=== PATIENT | female | born 1995 | race Caucasian/White ===

== ENCOUNTER 2017-03-13 16:25 | Inpatient (IN) | payer BC, OTHER ==
[~2017-03-13] VITALS: Ht 160 cm; Wt 49.0 kg
[~2017-03-13 16:25] MED LIST: ARIP5TAB4 PO; ASPI1TAB PO; FLUO-120 PO; LAMO150T PO
[2017-03-13] MEDS ORDERED: FLUO-120 PO (17:23)
[2017-03-13] MEDS ORDERED: ACETAMINOPHEN 325 MG TABLET PO PRN (17:45)
[2017-03-13] MEDS ORDERED: ONDANSETRON 4 MG/2 ML VIAL IM PRN (17:45)
[2017-03-13] MEDS ORDERED: IBUPROFEN 600 MG TABLET PO PRN (17:45)
[2017-03-13] MEDS ORDERED: LOPERAMIDE HCL 2 MG CAPSULE PO PRN ×2 (17:45)
[2017-03-13] MEDS ORDERED: MAGNESIUM HYDROXIDE 30 ML LIQUID UDC PO PRN (17:45)
[2017-03-13] MEDS ORDERED: CLONIDINE HCL 0.1 MG TABLET PO PRN (17:45)
[2017-03-13] MEDS ORDERED: MAG HYDROX/AL HYDROX/SIMETH 30 ML LIQUID UDC PO PRN (17:45)
[2017-03-13] MEDS ORDERED: LORAZEPAM 1 MG TABLET PO PRN ×2 (17:45)
[2017-03-13] MEDS ORDERED: DICYCLOMINE HCL 20 MG TABLET PO PRN (17:45)
[2017-03-13] MEDS ORDERED: LORAZEPAM 2 MG/1 ML VIAL IM PRN (17:45)
[2017-03-13] MEDS ORDERED: METHOCARBAMOL 750 MG TABLET PO PRN (17:45)
[2017-03-13] MEDS ORDERED: BUPRENORPHINE HCL 2 MG TAB.SUBL SL PRN (17:45)
[2017-03-13] MEDS ORDERED: ONDANSETRON ODT 4 MG TAB.RAPDIS SL PRN (17:45)
[2017-03-13] MEDS ORDERED: diphenhydrAMINE 50 MG CAPSULE PO PRN (17:45)
[2017-03-13] MEDS ORDERED: ASPIRIN/ACETAMINOPHEN/CAFFEINE TABLET PO PRN (17:45)
[2017-03-13] MEDS ORDERED: HYDROXYZINE PAMOATE 25 MG CAPSULE PO PRN (17:45)
[2017-03-13] MEDS ORDERED: MIRALAX 17 GM POWD.PACK PO PRN (17:45)
--- NOTE | 2017-03-13 18:01 | NUR ---
PRE ASSESSMENT: SKIN WARM AND DRY. NO EDEMA NOTED. BURN DEL TORO TO R THIGH THAT ARE NOT OPEN. SHE IS INTOXICATED WITH CHOREIFORM MOVEMENTS AND SLURRED SPEECH. VS WNL. SHE STATES SHE SMOKES METH,DRINKS ETOH AND EATS XANAX. SHE COULD NOT GIVE ME AMOUNTS AND IS TOO INTOXICATED TO BE ASSESSED AT THIS TIME. SHE IS ON A 1:1 FOR SAFETY. SHE IS NOT ABLE TO VOID AT THIS TIME. SHE IS ON ROOM RESTRICTION. SHE STATES SHE HAS BEEN AWAKE FOR MANY DAYS BUT COULD NOT SPECIFY. WILL ENDORSE TO [employer].
[2017-03-13 18:09] VITALS: BP 109/68
[2017-03-13 20:00] VITALS: BP 94/54
--- NOTE | 2017-03-13 20:00 | NUR ---
ADMISSION NOTE Pt is 21 year old female, admitted to [facility] 3rd floor on 03/13/17. Skin and body check done by day shift nurse, as per report, no contraband found. Pt in room 305, pt is intoxicated as evidenced by slurred speech, random frequent body movements, prolonged response to questions. Pt is difficult to obtain information from, responses inconsistent and vague. Pt oriented to name, place, date, situation. Pt was unable t provide urine, is on 1:1 and room restriction. Pt reports allergy to Wellbutrin, allergic reaction s/s seizures/ convulsion, last reaction "couple of years ago". Pt denies having PCP, states she goes to urgent care if needs medical care. Pt was in ER 2 days ago for withdrawal-related seizures, pt unable to provide name/ place of hospital. Pt reports PMH of bipolar disorder. Pt states she takes the following medications at home: 1. Prozac 20 mg - 1 cap daily, last taken 03/13/17 2. Abilify, unknown dose - pt run out of prescription, was not taking medication for "weeks" Pt reports history of withdrawal seizures, last episode on 03/11/17, pt was in ER for medical care. Substance use hx: Per pt, she relapsed 3 months ago (Nov, 2016), was on/off heroin and methamphetamine, but still was attending IOP, pt relapsed 2 weeks ago, provided the following information on drug use: 1. Xanax - pt started to take non-prescribed Xanax at age 14, for last 2 weeks, she reported use 2-4 mg daily PO, last dose taken 03/13/17 in the amount of 2 mg 2. ETOH (whiskey) - pt started to consume etoh at age 14, for past 2 weeks pt reports drinking daily, 6-8 "drinks", last drink 03/12/17, 6 "servings" of whiskey 3. Roxicet - pt started to use roxicet at age 15, takes it "whenever available", states "I wish I had it daily", usually takes it 3-4 times a week, 30-60 mg by snorting, last taken 03/13/17, 30 mg snorting 4. Heroin - pt started to use heroin at age 21, for past 2 wks, pt reports using 1 g q3days, last taken 03/12/17, unknown dose by smoking 5. Methamphetamine - pt started to use meth at age 21, for past weeks, she reports using "100$ worth" daily, IV or smoking, last taken 03/13/17 of unknown dose 6. Cocaine - she reports started to use cocaine at age 14, on/off, last use "couple of days ago", unknown dose. Pt reports her longest period of sobriety was 1 year from Jun 2015 - Jun 2016. Pt denies attending AA/NA groups. Rehab/detox hx: 1. [facility], [place] - Jan, 2017 for 3 weeks, then relapsed 2. [facility], [place] - Jul, 2017 for 5-6 wks 3. [facility], [place]- Aug 13-2015 Pt reports smoking tobacco since 14 years old, approximately 1 pack per day. Provided with smoking cessation information, reinforcement needed. Pt appears hyperactive, denies anxiety, pt noted with difficulty to stay in one position, constantly moving arms/ legs. No tremors noted. Skin warm, dry. Denies n/v, headache, hallucinations. Denies SI/HI. COWS 7, CIWA 2. All extremities with full ROM. Pupils 1 mm bilat, PERRLA. RR unlabored lung sounds clear bilat. Heart rate regular, no murmurs, pt denies chest pain at this time. Cap refill < 3 sec. No edema noted. Bowel sounds active x 4, pt no n/v. VS; temp 97.6, HR 86, RR 18, SPO2 97, BP 94/54, pain 0/10. Wt 108 lb, Ht 5'3". Pt oriented to room and environment, with returned demonstration windows application administrator light use. Pt encourage to increase PO fluids. Side rails up x2, call light within reach, bed locked in lower position. MD Castillo notified.
[2017-03-13] MEDS ORDERED: THIAMINE HCL 200 MG/2 ML VIAL IM ONE (21:00)
--- NOTE | 2017-03-13 21:45 | NUR ---
THIAMINE INJ REFUSED Pt refused B1 injection IM, states "no needles please". Risks/ benefits explained, pt offered x 3, but still refused.
[2017-03-14] VITALS: BP 99/77
--- NOTE | 2017-03-14 | NUR ---
CIWA/COWS DEFERRED COWS/CIWA assessment deferred per MD order; pt sleeping soundly, fall precautions in place, will continue to monitor Addendum: 03/14/17 at 0436 by HELIO AGUILAR RN Amended: Links added.
[2017-03-14 03:50] LABS: ETHANOL < 3 MG/DL (0-0)
[2017-03-14 03:56] LABS: ALANINE AMINOTRANSFERASE 24 U/L (14-59); ALBUMIN 2.9 g/dL (3.4-5.0); ALKALINE PHOSPHATASE 41 U/L (50-136); AMYLASE 35 U/L (25-115); ASPARTATE AMINOTRANSFERASE 25 U/L (15-37); BILIRUBIN,TOTAL 0.4 mg/dL (0.2-1.0); CALCIUM 8.5 mg/dL (8.5-10.1); CARBON DIOXIDE 27 mmol/L (21-32); CHLORIDE 105 mmol/L (98-107); CREATININE 0.8 mg/dL (0.6-1.3); GFR 89 mL/min (>60); GLUCOSE 83 mg/dL (74-106); LIPASE 89 U/L (73-393); MAGNESIUM 1.9 mg/dL (1.8-2.4); POTASSIUM 4.1 mmol/L (3.5-5.1); SODIUM SERUM 140 mmol/L (136-145); TOTAL PROTEIN, SERUM 6.3 g/dL (6.4-8.2); UREA NITROGEN, BLOOD 12 mg/dL (7-18)
[2017-03-14 04:00] VITALS: BP 110/85
--- NOTE | 2017-03-14 04:00 | NUR ---
CIWA/COWS DEFERRED COWS/CIWA assessment deferred per MD order; pt sleeping soundly, fall precautions in place, will continue to monitor
[2017-03-14 04:07] LABS: HIV-1 p24 ANTIGEN NON REACTIVE (NONREACTIVE); HIV-1/2 ANTIBODY NON REACTIVE (NONREACTIVE)
[2017-03-14 04:28] LABS: BASOPHILS # (AUTO) 0.1 K/uL (0.0-8.0); BASOPHILS % (AUTO) 1.7 % (0.0-2.0); EOSINOPHILS # (AUTO) 0.5 K/uL (0.0-0.7); EOSINOPHILS % (AUTO) 6.4 % (0.0-7.0); HEMATOCRIT 35.5 % (31.2-41.9); HEMOGLOBIN 12.3 g/dL (10.9-14.3); LYMPHOCYTES # (AUTO) 3.8 K/uL (20.0-40.0); LYMPHOCYTES % (AUTO) 49.3 % (20.5-51.5); MEAN CORPUSCULAR HEMOGLOBIN 33.5 uug (24.7-32.8); MEAN CORPUSCULAR HGB CONC 35 g/dL (32.3-35.6); MEAN CORPUSCULAR VOLUME 96.6 fL (75.5-95.3); MONOCYTES # (AUTO) 0.9 K/uL (2.0-10.0); MONOCYTES % (AUTO) 12.5 % (0.0-11.0); NEUTROPHILS # (AUTO) 2.2 K/uL (1.8-8.9); NEUTROPHILS % (AUTO) 30.1 % (38.5-71.5); PLATELET COUNT (AUTO) 340 K/uL (179-408); RED BLOOD CELL COUNT(AUTO) 3.67 MIL/uL (3.63-4.92); RED CELL DISTRIBUTION WIDTH 12.6 % (12.3-17.7); WHITE BLOOD COUNT (AUTO) 7.5 K/uL (3.8-11.8)
--- NOTE | 2017-03-14 07:18 | NUR ---
END OF FIT NOTE Pt is 21 y o female, allergic to wellbutrin, admitted on 03/13/16 for etoh, xanax, roxicet, heroin, methamphetamine, cocaine dependence. Pt is to start 5 day Ativan taper on 03/14/17. Pt was intoxicated upon admission, history provided by pt was difficult to obtain and inconsistent. Pt on 1:1 for safety. Pt refused B1 injection d/r fear of needles. Pt was unable to provided urine for UDS at 0650, was sent to lab promptly. Pt was restless but drowsy throughout the shift, COWS 7, CIWA 2 at 2000. VSS. Pt did not receive any prns. Pt slept for 7 hrs. PMH of bipolar and seizures. Pt is n seizure and fall precautions. Report endorsed to day shift nurse.
--- NOTE | 2017-03-14 07:20 | NUR ---
Start of shift note Pt was admitted for ETOH, Benzo, opiate and methamphetamine dependence. Pt has a PMH of bipolar disorder and seizures, with the last one on 03/11/17. Pt is on a 1:1 for safety. Pt is resting in her room. Pt has no complaints at this time. Pt continues to have continuos body movements. All needs addressed at this time. Will continue to monitor pt. pt is scheduled to start a 5 day ativan taper at 0900 and has PRN subutex available for COWS >12.
[2017-03-14 07:23] LABS: *BLOOD, URINE NEGATIVE (NEGATIVE); *COLOR,URINE DARK YELLOW (YELLOW); *KETONES,URINE NEGATIVE (NEGATIVE); *PROTEIN,URINE 1+ (NEGATIVE); *UROBILINOGEN,URINE 0.2 E.U./dl (NORMAL); LEUKOCYTE ESTERASE ,URINE NEGATIVE (NEGATIVE); NITRITE, URINE NEGATIVE (NEGATIVE); PH,URINE 5.5 (5.0-8.0); UGLUCOSE NEGATIVE (NEGATIVE)
[2017-03-14 07:29] LABS: *URINE HCG, QUAL NEG (NEGATIVE)
[2017-03-14 07:44] LABS: *BILIRUBIN,URIN 1+ (NEGATIVE); *CLARITY,URINE HAZY (CLEAR)
[2017-03-14 07:46] LABS: *AMPHETAMINE, URINE POSITIVE (NEGATIVE); *BARBITURATE, URINE NEGATIVE (NEGATIVE); *CANNABINOID, URINE NEGATIVE (NEGATIVE); *COCCAINE, URINE POSITIVE (NEGATIVE); *OPIATE, URINE POSITIVE (NEGATIVE); *PHENCYCLIDINE SCREEN,URINE NEGATIVE (NEGATIVE)
[2017-03-14 07:49] LABS: BACTERIA,URINE FEW /HPF (NONE SEEN); ICTOTEST NEGATIVE (NEGATIVE); MUCUS,URINE MANY /LPF (0-FEW); RBC,URINE 0-3 /HPF (0-3); SQUAMOUS EPITHELIAL CELL,UR MODERATE /HPF (NONE SEEN)
[2017-03-14 08:00] VITALS: BP 109/63
[2017-03-14] MEDS: LORAZEPAM 1 MG TABLET PO SCH ×4 (08:28→21:45)
[2017-03-14] MEDS: FOLIC ACID 1 MG TABLET PO SCH (08:28)
[2017-03-14] MEDS: THIAMINE HCL 100 MG TABLET PO SCH (08:28)
[2017-03-14] MEDS: MULTIVITAMINS,THERAPEUTIC TABLET PO SCH (08:28)
--- NOTE | 2017-03-14 08:28 | NUR ---
PRN administration Pt c/o pain 8/10 in her bilateral upper arms. Administered PRN robaxin and motrin. Will continue to monitor pt
[2017-03-14] MEDS ORDERED: TUBERCULIN,PURIF.PROT.DERIV. 5 TU/0.1 ML TEST ID ONE (09:00)
[2017-03-14] MEDS: ARIPIPRAZOLE 5 MG TABLET PO SCH (09:00)
[2017-03-14] MEDS: FLUOXETINE HCL 20 MG CAPSULE PO SCH (09:00)
--- NOTE | 2017-03-14 09:28 | NUR ---
Reassessment/medication held Pt is sleeping soundly. Pt is too sedated to take medication, abilify and prosac held. Will continue to monitor pt. 1:1 sitter at bedside.
--- NOTE | 2017-03-14 11:05 | NUR ---
TRANSFER OF CARE Received pt sleeping in bed with side rails padded and sitter at bedside. bed locked and in lowest position. Will continue to monitor.
[2017-03-14 12:00] VITALS: BP 94/56
--- NOTE | 2017-03-14 12:00 | NUR ---
1200 COWS/CIWA DEFERRED Pt asleep. RR even and unlabored at 16. Bed in lowest position and locked with side rails padded. Sitter at bedside. Will monitor
--- NOTE | 2017-03-14 13:00 | NUR ---
1300 Ativan held. Patient too sedated in bed. RR even and unlabored. Bed locked and in lowest position with side railed padded. Sitter at bedside.
[2017-03-14 16:00] VITALS: BP 126/82
--- NOTE | 2017-03-14 16:00 | NUR ---
1600 COWS/CIWA DEFERRED. PT STILL ASLEEP. VSS. RESPIRATIONS EVEN AND UNLABORED AT 16. SITTER AT BEDSIDE
[2017-03-14] MEDS ORDERED: IV D5 1/2 NS 1000 ML 1,000 ML IV PRN (17:00)
--- NOTE | 2017-03-14 18:40 | NUR ---
END OF SHIFT: Pt slept most of shift. CIWA and COWS deferred. Pt on 1:1 and sitter at bedside all shift. Bed locked and in lowest position with side rails padded. Pt on fall and seizure precautions. PRN Robaxin and Motrin given by prior nurse with effectiveness. Pt woke up at 1800 and began eating dinner. 2 mg Ativan administered per taper at 1750. Will pass report to oncoming nurse.
--- NOTE | 2017-03-14 19:30 | NUR ---
START OF SHIFT NOTE Received Pt is 21 y o female, admitted on 03/13/17 for Xanax, ETOH, Roxicet, heroin, methamphetamine and cocaine dependence. Pt started 5 day Ativan taper on 03/14/17. Pt in bed, resting with eyes closed. Pt awakened by verbal stimuli, oriented x 3. Pt reports mild anxiety when awake, noted moderate sweating. No tremors noted. Pupils 2 mm bilat, PERRLA. RR unlabored, lung sounds clear. Bowel sounds active x 4, pt denies n/v/stomach cramps. Pt denies urinary difficulties. Pt is on 1:1 for fall and seizure precautions. Side rails up x 2, call light within reach, bed locked in lowest position. Will continue with plan of care
[2017-03-14 20:00] VITALS: BP 106/64
[2017-03-14] MEDS: LAMOTRIGINE 25 MG TABLET PO SCH (21:43)
[2017-03-15] VITALS: BP_SYST 104; BP_SYST 108; BP_DIAS 59; BP_DIAS 69
--- NOTE | 2017-03-15 | NUR ---
CIWA/COWS DEFERRED COWS/CIWA assessment deferred per MD order; pt sleeping soundly, fall precautions in place, will continue to monitor Addendum: 03/15/17 at 0223 by HELIO AGUILAR RN Amended: Links added.
[2017-03-15 04:00] VITALS: BP 99/45
--- NOTE | 2017-03-15 04:00 | NUR ---
CIWA/COWS DEFERRED COWS/CIWA assessment deferred per MD order; pt sleeping soundly, fall precautions in place, will continue to monitor Addendum: 03/15/17 at 0613 by HELIO AGUILAR RN Amended: Links added.
[2017-03-15 06:06] LABS: HCV AB <0.1 s/co ratio (0.0-0.9); HEPATITIS B CORE AB, IgM Negative (Negative); HEPATITIS B SURFACE AG Negative (Negative)
--- NOTE | 2017-03-15 07:09 | NUR ---
END OF SHIFT NOTE Pt is 21 y o female, allergic to wellbutrin, admitted on 03/13/16 for etoh, xanax, roxicet, heroin, methamphetamine, cocaine dependence. Pt is on day 2 of 5 day Ativan taper started on 03/14/17. Pt slept for 12 hrs, was easily aroused at 1999 for assessment, was oriented x3 but verbalized fatigue and lack of energy. Pt received scheduled medications as ordered, no prns were given. When awake, pt c/o anxiety, was observed with sweating. Last COWS 5, CIWA 5 at 1999, VSS. PO intake 240 ml. Pt is on 1:1 for fall and seizure precautions. Report endorsed to day shift nurse.
[2017-03-15 08:00] VITALS: BP 115/88
--- NOTE | 2017-03-15 08:00 | NUR ---
START OF SHIFT: RECEIVED PT WITH FLAT AFFECT AND DEPRESSED MOOD. SHE DENIES S/I AND H/I. SHE STATES SHE WET HER BED LAST NIGHT. SHE CONTINUES ON 1:1 FOR SAFETY. MANAGER SOLUTION WILL ASSIST PT WITH A SHOWER THIS AM PT HAS UNSTEADY GAIT. FALL AND SZ PRECAUTIONS IN PLACE. ENCOURAGED INCREASED FLUIDS. ATIVAN TAPER IN PROGRESS. CIWA 2 COWS 0. WILL CONTINUE TO MONITOR AND OFFER SAFE AND SUPPORTIVE ENVIRONMENT.
[2017-03-15 08:16] LABS: CALCIUM 8.7 mg/dL (8.5-10.1); CREATININE 0.7 mg/dL (0.6-1.3); MAGNESIUM 2.1 mg/dL (1.8-2.4); POTASSIUM 4.4 mmol/L (3.5-5.1)
[2017-03-15] MEDS: THIAMINE HCL 100 MG TABLET PO SCH (09:00)
[2017-03-15] MEDS ORDERED: LORAZEPAM 1 MG TABLET PO SCH (09:00)
[2017-03-15] MEDS: ARIPIPRAZOLE 5 MG TABLET PO SCH (09:17)
[2017-03-15] MEDS: FLUOXETINE HCL 20 MG CAPSULE PO SCH (09:17)
[2017-03-15] MEDS: FOLIC ACID 1 MG TABLET PO SCH (09:17)
[2017-03-15] MEDS: MULTIVITAMINS,THERAPEUTIC TABLET PO SCH (09:17)
[2017-03-15 12:00] VITALS: BP 110/77
[2017-03-15] MEDS: LORAZEPAM 1 MG TABLET PO SCH ×2 (14:54→20:27)
[2017-03-15 16:00] VITALS: BP 106/69
--- NOTE | 2017-03-15 16:00 | NUR ---
HELD 1500 ATIVAN PT IS ASLEEP. 1:1 SITTER AT BEDSIDE.
--- NOTE | 2017-03-15 19:06 | NUR ---
PT REMAINS ON 1:1 FOR SAFETY . HER GAIT REMAINS UNSTEADY. FALL AND SZ PRECAUTIONS NOTED.ATIVAN TAPER WAS MODIFIED PER MD. LAST CIWA 1 COWS 0. 1500 ATIVAN HELD DUE TO SEDATION. SHE CONTINUES TO PRESENT WITH FLAT AFFECT AND DEPRESSED MOOD. SHE HAS BEEN SLEEPING INTERMITTENTLY THROUGHOUT SHIFT. SHE DENIES S/I AND H/I. HER APPETITE IS FAIR. WILL PASS SHIFT REPORT TO ONCOMING NIGHT NURSE.
--- NOTE | 2017-03-15 19:15 | NUR ---
START OF SHIFT NOTE: Patient is a 21 y/o female admitted on 03/13/17 for ETOH and Benzo dependence. Patient reported using Xanax 2-4 mg daily for 2 weeks, drinks 6-8 drinks of whiskey for 2 weeks. Pt also uses Roxicet, Heroin, Meth and Cocaine. Patient has medical history of Bipolar disorder and Seizure disorder 4 days ago ( 03/11/17). Patient is on a regular diet with allergies to Wellbutrin. Full Code status. Seizure and fall precaution noted. Patient is placed on a 5-day Ativan taper and tolerating well. Skin intact. Last CIWA is 1 COWS 0. No PRN medications given during day shift. Patient is on a 1:1 observation d/t unsteady gait. Pt has been sleeping intermittently throughout the day. Patient is alert & oriented x4. Pt asleep but easily arousable. No shortness of breath noted. Respiration even & unlabored. Abdomen soft & non-distended. Bowel sounds active in all four quadrants. No nausea/vomiting noted. Patient denies body aches or headache. Patient noted with sweating & chills, restless legs and pupils slightly dilated. No hallucinations noted. Patient denies SI/HI. Safety precautions are in place. Bed locked in lowest position. Both side rails up. Call light within patient reach. Will continue to monitor patient.
[2017-03-15 20:00] VITALS: BP 102/62
[2017-03-15] MEDS: LAMOTRIGINE 25 MG TABLET PO SCH (20:27)
[2017-03-16] VITALS: BP 104/59
[2017-03-16 04:00] VITALS: BP 97/67
--- NOTE | 2017-03-16 07:00 | NUR ---
END OF SHIFT NOTE: Pt had and uneventful night. Pt remained stable and vitals remains WNL. Pt was not given any PRN medications during my shift. Last COWS is 6 CIWA 3 noted. Pt continues under 1:1 close observation d/t unsteady gait and for safety. Pt has been sleeping throughout my shift. Pt slept for a total of 11 hours. Pt still asleep at this time. No s/s of distress noted. No shortness of breath noted. Respiration even & unlabored. Pt consumed 200ml of fluids. Pt has not gone to the bathroom the whole shift. All needs attended & met. Safety precautions are in place. Bed locked in lowest position. Both side rails up. Call light within pts reach. Will endorse pt to day shift nurse.
[2017-03-16 07:08] LABS: *CHLAMYDIA NAA Negative (Negative); *GC NAA Negative (Negative); *TRIC.VAG. NAA Negative (Negative)
[2017-03-16 08:00] VITALS: BP 109/60
--- NOTE | 2017-03-16 08:05 | NUR ---
START OF SHIFT: RECEIVED PT A/O X 4. 1:1 SITTER AT BEDSIDE FOR SAFETY. GAIT IS STEADY. HER AFFECT IS FLAT AND MOOD SUBDUED. SHE DENIES S/I AND H/I. SHE REPORTS SOME RESTLESSNESS. SHE DENIES CRAVINGS. ENCOURAGED GROUPS AND ACTIVITIES TO PROMOTE WELLNESS. ENCOURAGED INCREASED FLUIDS. WILL CONTINUE TO MONITOR AND OFFER SUPPORT. Addendum: 03/16/17 at 1002 by OSCAR SAMPSON RN ATIVAN TAPER CONTINUES. CIWA 1 COWS 1
[2017-03-16] MEDS: MULTIVITAMINS,THERAPEUTIC TABLET PO SCH (08:47)
[2017-03-16] MEDS: THIAMINE HCL 100 MG TABLET PO SCH (08:47)
[2017-03-16] MEDS: FOLIC ACID 1 MG TABLET PO SCH (08:47)
[2017-03-16] MEDS: ARIPIPRAZOLE 5 MG TABLET PO SCH (08:47)
[2017-03-16] MEDS: LORAZEPAM 1 MG TABLET PO SCH ×3 (08:47→21:18)
[2017-03-16] MEDS: FLUOXETINE HCL 20 MG CAPSULE PO SCH (08:47)
[2017-03-16] MEDS ORDERED: LORAZEPAM 1 MG TABLET PO SCH (09:00)
[2017-03-16 12:00] VITALS: BP 100/58
--- NOTE | 2017-03-16 13:00 | NUR ---
1:1 DISCONTINUED PER MD.GAIT IS STEADY. SHE DENIES S/I AND H/I.
[2017-03-16 16:00] VITALS: BP 113/77
--- NOTE | 2017-03-16 16:00 | NUR ---
1500 MEDS HELD. PT IS ASLEEP. BED LOCKED AND LOW. RESPIRATIONS EVEN AND UNLABORED. CALL SANDERSON IN REACH. 1500 CIWA DEFERRED.
--- NOTE | 2017-03-16 18:43 | NUR ---
END OF SHIFT: PT CONTINUES ON ATIVAN TAPER. LAST CIWA DEFERRED SHE WAS ASLEEP. HER GAIT IS STEADY. 1:1 DISCONTINUED THIS AFTERNOON. CIWA 0 COWS 2 AT NOON. 1500 ATIVAN HELD DUE TO SEDATION. SHE CONTINUES TO PRESENT WITH FLAT AFFECT AND DEPRESSED MOOD. SHE HAS BEEN SLEEPING INTERMITTENTLY THROUGHOUT SHIFT. SHE DENIES S/I AND H/I. HER APPETITE IS GOOD. [facility]
--- NOTE | 2017-03-16 19:15 | NUR ---
START OF SHIFT NOTE: Patient is a 21 y/o female admitted on 03/13/17 for ETOH and Benzo dependence. Patient reported using Xanax 2-4 mg daily for 2 weeks, drinks 6-8 drinks of whiskey for 2 weeks. Pt also uses Roxicet, Heroin, Meth and Cocaine. Patient has medical history of Bipolar disorder and Seizure disorder 4 days ago ( 03/11/17). Patient is on a regular diet with allergies to Wellbutrin. Full Code status. Seizure and fall precaution noted. Patient is placed on a 5-day Ativan taper. Skin intact. Last CIWA is 2 COWS 0. No PRN medications given during day shift. Patient was noted with a steady gait and 1:1 order was discontinued per MD order. Patient is alert & oriented x4. Pt was in room asleep but arousable. No shortness of breath noted. Respiration even & unlabored. Abdomen soft & non-distended. Bowel sounds active in all four quadrants. No nausea/vomiting noted. Patient denies body aches or headache. Patient denies body aches, sweating & chills. No hallucinations noted. Patient denies SI/HI. Safety precautions are in place. Bed locked in lowest position. Both side rails up. Call light within patient reach. Will continue to monitor patient.
[2017-03-16 20:00] VITALS: BP 112/66
[2017-03-16] MEDS: LAMOTRIGINE 25 MG TABLET PO SCH (21:11)
[2017-03-17] VITALS: BP 94/60
[2017-03-17 04:00] VITALS: BP 99/55
--- NOTE | 2017-03-17 07:10 | NUR ---
END OF SHIFT NOTE: Patient is a 21 y/o female admitted on 03/13/17 for ETOH and Benzo dependence. Pt had an uneventful night. Pt has been asleep most of the time. Encouraged pt to increase fluid intake. Last COWS is 3 CIWA 4 noted. No PRN medication given during my shift. Pt remained stable and vitals WNL. No episodes of seizures noted. Pt still asleep at this time. No s/s of distress noted. No shortness of breath noted. Pt was able to sleep for a total of 10 hours. Pt consumed 1100ml of fluids. Voided 1x with no bowel movement. All needs attended & met. Safety precautions are in place. Bed locked in lowest position. Both side rails up. Call light within pts reach. Will continue to monitor patient.
--- NOTE | 2017-03-17 07:37 | NUR ---
START OF SHIFT Pt 21 y/o female admitted for bzo/etoh/opioid/ meth dependence. Pt received in room awake on bed. Pt alert and oriented to name, place, and time. Perrla. Skin warm and slightly moist to touch. Respirations even and unlabored. Pt with pressured speech noted during conversation this morning. It was reported that pt slept for 10 hours last night. Bed on lowest position with side rails x 2 up for safety. Call light within reach. No distress noted at this time.
[2017-03-17 08:00] VITALS: BP 100/64
[2017-03-17] MEDS ORDERED: LORAZEPAM 1 MG TABLET PO SCH ×2 (09:00)
[2017-03-17] MEDS: ARIPIPRAZOLE 5 MG TABLET PO SCH (09:09)
[2017-03-17] MEDS: THIAMINE HCL 100 MG TABLET PO SCH (09:09)
[2017-03-17] MEDS: MULTIVITAMINS,THERAPEUTIC TABLET PO SCH (09:09)
[2017-03-17] MEDS: FLUOXETINE HCL 20 MG CAPSULE PO SCH (09:10)
[2017-03-17] MEDS: FOLIC ACID 1 MG TABLET PO SCH (09:10)
--- NOTE | 2017-03-17 10:44 | NUR ---
NSG ENTRY Pt observed in group activity at this time.
[2017-03-17 12:00] VITALS: BP 106/67
[2017-03-17] MEDS ORDERED: DICY20TA28 PO (15:52)
[2017-03-17] MEDS ORDERED: DIPH50CA37 PO (15:52)
[2017-03-17] MEDS ORDERED: Ibuprofen PO (15:52)
[2017-03-17] MEDS ORDERED: HYDR-3895 PO (15:52)
[2017-03-17 16:00] VITALS: BP 110/72
--- NOTE | 2017-03-17 19:19 | NUR ---
END OF SHIFT Pt 21 y/o female admitted for bzo/etoh/opi/meth dependence. Pt alert and oriented to name, place, and time. Perrla. Skin warm and slightly moist to touch. Respirations even and unlabored. Pt observed mostly in room this morning, but did attend group activity. Pt medication compliant and tolerated well. No ASE noted. Bed on lowest position with side rails x2 up for safety. Call light within reach. No distress noted at this time.
--- NOTE | 2017-03-17 19:30 | NUR ---
Start of Shift Note: Patient is a 21 y/o female admitted on 03/13/17 for ETOH and Benzo dependence. Patient reported using Xanax 2-4 mg daily for 2 weeks, drinks 6-8 drinks of whiskey for 2 weeks. Pt also uses Roxicet, Heroin, Meth and Cocaine. Patient has medical history of Bipolar disorder and Seizure disorder 4 days ago ( 03/11/17). Patient is on a regular diet with allergies to Wellbutrin. Full Code status. Seizure and fall precaution noted. Ativan taper was discontinued and she is scheduled to be discharge tomorrow. Urine drug screen to be collected. Last CIWA is 2 COWS 3. No PRN medications given during day shift. Patient is alert & oriented x4. Pt was in room asleep but arousable. No shortness of breath noted. Respiration even & unlabored. Abdomen soft & non-distended. Bowel sounds active in all four quadrants. No nausea/vomiting noted. Patient denies body aches or headache. Patient denies body aches, sweating & chills. No hallucinations noted. Patient denies SI/HI. Safety precautions are in place. Bed locked in lowest position. Both side rails up. Call light within patient reach. Will continue to monitor patient.
[2017-03-17 20:00] VITALS: BP 101/55
[2017-03-17] MEDS: LAMOTRIGINE 25 MG TABLET PO SCH (20:26)
[2017-03-18] VITALS: BP 102/59
[2017-03-18 04:00] VITALS: BP 105/65
--- NOTE | 2017-03-18 07:22 | NUR ---
END OF SHIFT NOTE: Patient is a 21 y/o female admitted on 03/13/17 for ETOH and Benzo dependence. Patient reported using Xanax 2-4 mg daily for 2 weeks, drinks 6-8 drinks of whiskey for 2 weeks. Pt also uses Roxicet, Heroin, Meth and Cocaine. Patient has medical history of Bipolar disorder and Seizure disorder 4 days ago ( 03/11/17). Patient is on a regular diet with allergies to Wellbutrin. Full Code status. Seizure and fall precaution noted. Ativan taper was discontinued and she is scheduled to be discharge today. Urine drug screen still needs to be collected. Last COWS 2 CIWA 1. No PRN's given during my shift. Pt had an uneventful night. Pt remained stable and vitals remains WNL. Pt remained compliant with treatment plan. Pt slept for a total of 10 hours. Pt consumed 298 ml of fluids. Voided 2x with no bowel movement. All needs attended & met. Safety precautions are in place. Bed locked in lowest position. Both side rails up. Call light within pt's reach. Will endorse pt to day shift nurse.
--- NOTE | 2017-03-18 07:25 | NUR ---
Start of shift note SBAR report rcv'd. Pt was admitted for benzo, etoh, opiate and methamphetamine dependence. Pt has a PMH of bipolar disorder and seizures from withdrawal. Pt has completed a 5 day ativan taper without any ASE. Pt has no complaints at this time. Pt is scheduled for discharge today. Pt states that she feels ready for discharge. All needs addressed at this time. Will continue to monitor pt.
[2017-03-18 08:00] VITALS: BP 122/81
[2017-03-18] MEDS: THIAMINE HCL 100 MG TABLET PO SCH (08:33)
[2017-03-18] MEDS: FLUOXETINE HCL 20 MG CAPSULE PO SCH (08:33)
[2017-03-18] MEDS: MULTIVITAMINS,THERAPEUTIC TABLET PO SCH (08:33)
[2017-03-18] MEDS: ARIPIPRAZOLE 5 MG TABLET PO SCH (08:33)
[2017-03-18] MEDS: FOLIC ACID 1 MG TABLET PO SCH (08:33)
[2017-03-18] MEDS ORDERED: LORAZEPAM 1 MG TABLET PO SCH (09:00)
[2017-03-18 09:43] LABS: *AMPHETAMINE, URINE POSITIVE (NEGATIVE); *BARBITURATE, URINE NEGATIVE (NEGATIVE); *CANNABINOID, URINE NEGATIVE (NEGATIVE); *COCCAINE, URINE NEGATIVE (NEGATIVE); *OPIATE, URINE NEGATIVE (NEGATIVE); *PHENCYCLIDINE SCREEN,URINE NEGATIVE (NEGATIVE)
--- NOTE | 2017-03-18 10:15 | NUR ---
Discharge note Pt was admitted for benzo, etoh, and opiate dependence. Pt had a CIWA and COWS of 0. Pt VS are WNL. Pt LBM was 03/17/17. Pt stated that she feels ready for discharge. Pt verbalized her understanding of the discharge instructions. Denies SI/HI. Pt medications, prescriptions, discharge instructions and valuables returned to pt. Pt ID band removed, pt ambulated off of the unit with [employer] [facility], left facility via [facility].
== END 2017-03-18 10:15 | disposition other institution (70) | DRG 897 ==
LOC: SRC 16:30
PROVIDERS: ADMIT Internal Medicine; ATTEND Internal Medicine
PROC: HZ2ZZZZ Detoxification Services for Substance Abuse Treatment (ICD-10-PCS; principal; 2017-03-13)
DX: F11.23 Opioid dependence with withdrawal (principal); F31.30 Bipolar disorder, current episode depressed, mild or moderate severity, unspecified; F14.23 Cocaine dependence with withdrawal; F13.229 Sedative, hypnotic or anxiolytic dependence with intoxication, unspecified; F10.232 Alcohol dependence with withdrawal with perceptual disturbance; F13.232 Sedative, hypnotic or anxiolytic dependence with withdrawal with perceptual disturbance; Y90.9 Presence of alcohol in blood, level not specified; F17.210 Nicotine dependence, cigarettes, uncomplicated; Z59.1 Inadequate housing; E86.0 Dehydration; F41.9 Anxiety disorder, unspecified; Z79.899 Other long term (current) drug therapy; Z82.49 Family history of ischemic heart disease and other diseases of the circulatory system; Z81.4 Family history of other substance abuse and dependence; Z72.51 High risk heterosexual behavior; F15.221 Other stimulant dependence with intoxication delirium
CPT/HCPCS: 36415; 80307; 80324; 80346; 80353; 80361; 83690; 83735; 84100; 84443; 84703; 85025; 86580; 86592; 86705; 86803; 87340; 87491; 87806; A4663; G6040-TC; J3411